=== PATIENT | male | born 1965 | race Caucasian/White ===

== ENCOUNTER → 2024-08-06 13:13 | Outpatient (BNVA) | payer BC, SELFPAY | PROVIDERS: Visit Provider Orthopaedic Surgery | DX: M54.50 Low back pain, unspecified (principal); M54.9 Dorsalgia, unspecified | CPT/HCPCS: 72110 ==

== ENCOUNTER → 2024-08-24 14:52 | Outpatient (BNVA) | payer BC, SELFPAY | PROVIDERS: Visit Provider Podiatrist Foot & Ankle Surgery | DX: M79.672 Pain in left foot (principal); M19.072 Primary osteoarthritis, left ankle and foot; M20.42 Other hammer toe(s) (acquired), left foot; M19.172 Post-traumatic osteoarthritis, left ankle and foot | CPT/HCPCS: 73630 ==

== ENCOUNTER 2024-08-26 13:47 | Outpatient (CLI) | payer BC, SELFPAY ==
--- NOTE | 2024-08-26 13:45 | MR_ITS ---
WS: [id number] MRI LUMBAR SPINE NONCONTRAST TECHNIQUE: Sagittal T1, T2 and STIR imaging. Axial T1 and T2 imaging. CLINICAL INFORMATION: lumbar pain FINDINGS: Mild lumbar curve. No acute compression. Mild disc bulging L2-L5. Mild annular bulging at T11-T12. L1-L2: Mild facet arthropathy. Spinal canal and foramen are patent. L2-L3: Mild annular bulging. Narrowing of the RIGHT subarticular recess. Impingement on traversing RI GHT L3 nerve root. Mild facet arthropathy. L3-L4: Mild annular bulging. Slight impingement traversing L4 nerve roots bilaterally. Mild facet art hropathy. Foramen are patent. L4-L5: Mild annular bulging. Impingement traversing LEFT L5 nerve root in the subarticular recess. Mi ld facet arthropathy. Mild central canal stenosis. Small LEFT foraminal protrusion with mild LEFT for aminal narrowing. RIGHT foramen is patent. Mild facet arthropathy. L5-S1: Mild annular bulging. Slight effacement of ventral thecal sac. Mild facet arthropathy. Foramen are patent. Visualized pelvic bony structures: Normal. Paravertebral soft tissues: Normal. Partially visualized LEFT renal cyst measuring 5.1 cm. MR/MR lumbar spine wo con* [id number] IMPRESSION: 1. Mild lumbar curve. No acute compression. 2. Mild central canal stenosis L3-L4 and L4-L5. Impingement on the bilateral L 3-4 and LEFT L4-5 subarticular recess. 3. Proximal foraminal protrusion L4-5 impinges the exiting LEFT L4 nerve root. 4. Mild annular bulge L2-3 with narrowing of the RIGHT subarticular recess.
== END 2024-08-26 13:48 | disposition home or self-care (01) ==
LOC: RAD 13:48
PROVIDERS: PCP Nurse Practitioner Family; Visit Provider Orthopaedic Surgery
DX: M48.061 Spinal stenosis, lumbar region without neurogenic claudication (principal); M43.8X6 Other specified deforming dorsopathies, lumbar region; M51.26 Other intervertebral disc displacement, lumbar region; M51.369 Other intervertebral disc degeneration, lumbar region without mention of lumbar back pain or lower extremity pain; M47.896 Other spondylosis, lumbar region
CPT/HCPCS: 72148

== ENCOUNTER 2024-09-10 12:44 | Outpatient (RCR) | payer BC, SELFPAY | END 2024-09-18 23:59 | disposition home or self-care (01) | LOC: MPT 12:44 | PROVIDERS: PCP Nurse Practitioner Family; Visit Provider Orthopaedic Surgery | DX: M54.9 Dorsalgia, unspecified (principal); G89.29 Other chronic pain | CPT/HCPCS: 97110; 97162; G0283 ==

== ENCOUNTER 2025-03-11 15:20 | Outpatient (CLI) | payer BC, SELFPAY ==
[2025-03-11 16:45] LABS: Free T4 Free Thyroxine 1.14 ng/dL (0.82-1.77); Thyroid Stimulating Hormone 1.07 uIU/mL (0.27-4.20)
== END 2025-03-11 15:21 | disposition home or self-care (01) ==
LOC: LAB 15:24
PROVIDERS: PCP Nurse Practitioner Family; Visit Provider Specialist
DX: G31.84 Mild cognitive impairment of uncertain or unknown etiology (principal)
CPT/HCPCS: 36415; 82542; 83520; 84439; 84443; 85651; 86038

== ENCOUNTER → 2025-05-25 17:25 | Outpatient (BNVA) | payer BC, SELFPAY | PROVIDERS: PCP Nurse Practitioner Family; Visit Provider Specialist | DX: G31.84 Mild cognitive impairment of uncertain or unknown etiology (principal); G43.711 Chronic migraine without aura, intractable, with status migrainosus | CPT/HCPCS: 80053; 84443; 85025 ==

== ENCOUNTER 2025-05-26 13:24 | Outpatient (CLI) | payer BC, SELFPAY | END 2025-05-26 13:25 | disposition home or self-care (01) | PROVIDERS: PCP Nurse Practitioner Family; Visit Provider Specialist | DX: G31.84 Mild cognitive impairment of uncertain or unknown etiology (principal) | CPT/HCPCS: 36415; 82233; 82234 ==

== ENCOUNTER 2025-07-12 15:55 | Outpatient (CLI) | payer BC, SELFPAY ==
--- NOTE | 2025-07-12 16:00 | MR_ITS ---
WS: [id number] MRI HEAD WITHOUT CONTRAST TECHNIQUE: Sagittal T1, T2 axial, T2 axial FLAIR, axial and coronal T1 images, axial susceptibility weighted imaging, axial diffusion weighted images, and coronal T2 images were obtained. 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 Mild small vessel changes. Mild parenchymal volume loss. Slight asymmetric volume loss parietal lobes at the vertex. Tiny chronic lacunar infarct RIGHT cerebellum. Normal vascular flow voids at the skull base. No extra-axial fluid collections. Paranasal sinuses and mastoid air cells are well aerated. Normal posterior nasopharynx. Normal optic chiasm and pituitary infundibulum. Temporal lobes and hippocampal formations are normal. No hemosiderin. No other acute findings. MR/MR head wo con* [id number] IMPRESSION: 1. No evidence of restricted diffusion to suggest acute ischemia. 2. Mild small vessel changes. Mild parenchymal volume loss. Subtle asymmetric volume loss in the parietal lobes at the vertex. 3. Temporal lobes and hippocampal formations are normal in appearance. 4. No hemosiderin. 5. Tiny chronic lacunar infarct RIGHT cerebellum. 6. No other acute findings
== END 2025-07-12 15:56 | disposition home or self-care (01) ==
LOC: RAD 15:56
PROVIDERS: PCP Nurse Practitioner Family; Visit Provider Specialist
DX: Z79.899 Other long term (current) drug therapy (principal); G31.9 Degenerative disease of nervous system, unspecified; R93.0 Abnormal findings on diagnostic imaging of skull and head, not elsewhere classified
CPT/HCPCS: 70551